=== PATIENT | male | born 2005 | race Caucasian/White ===

== ENCOUNTER 2023-05-27 20:47 | Emergency (ER) | payer SELFPAY | END 2023-05-27 21:42 | disposition home or self-care (01) | LOC: MW.ED 20:47 | DX: B86 Scabies (principal) | CPT/HCPCS: 99282; 99283 ==

== ENCOUNTER 2023-06-30 13:30 | Emergency (ER) | payer SELFPAY | END 2023-06-30 14:35 | disposition home or self-care (01) | LOC: MW.ED 13:30 | DX: L30.9 Dermatitis, unspecified (principal); F17.210 Nicotine dependence, cigarettes, uncomplicated; Z75.8 Other problems related to medical facilities and other health care | CPT/HCPCS: 99282; 99283 ==

== ENCOUNTER 2023-08-14 21:36 | Emergency (ER) | payer SELFPAY ==
[2023-08-14] MEDS: Acetaminophen/HYDROcodone 325-5 MG Tab PO ONE ×2 (22:22→23:57)
== END 2023-08-15 00:13 | disposition home or self-care (01) ==
LOC: MW.ED 21:36
DX: S02.2XXA Fracture of nasal bones, initial encounter for closed fracture (principal); S93.602A Unspecified sprain of left foot, initial encounter; Z79.899 Other long term (current) drug therapy; V37.5XXA Driver of three-wheeled motor vehicle injured in collision with fixed or stationary object in traffic accident, initial encounter
CPT/HCPCS: 70486; 73630; 99284; A9270